=== PATIENT | male | born 1955 | race Caucasian/White ===

== ENCOUNTER → 2018-05-21 | Outpatient (CLI) | payer OTHER ==
[~2018-05-21] MED LIST: IBUP1TAB11 PO; MULT1TAB60 PO
== END | disposition home or self-care (01) ==
LOC: STAR 13:12
PROVIDERS: ATTEND Orthopaedic Surgery
DX: Z01.818 Encounter for other preprocedural examination (principal); S76.311A Strain of muscle, fascia and tendon of the posterior muscle group at thigh level, right thigh, initial encounter; M75.41 Impingement syndrome of right shoulder; M75.121 Complete rotator cuff tear or rupture of right shoulder, not specified as traumatic; X58.XXXA Exposure to other specified factors, initial encounter; Y93.89 Activity, other specified; Y92.89 Other specified places as the place of occurrence of the external cause; Y99.8 Other external cause status
CPT/HCPCS: 93005

== ENCOUNTER 2018-05-29 09:24 | Day surgery (SDC) | payer OTHER ==
[2018-05-21 14:13] VITALS: BP 118/77
[~2018-05-29] VITALS: Ht 175.3 cm; Wt 89.6 kg
[~2018-05-29 09:24] MED LIST changes: +BUPIVACAINE/PF-EPI 0.5% 1:200K ONE; +LIDOCAINE 1%-EPI 1:100K, 30ML ONE; +NEOSPORIN OINT, 15GM ONE
[2018-05-29] MEDS ORDERED: LACTATED RINGERS 1,000 ML IV SCH (09:54)
[2018-05-29] MEDS ORDERED: GABAPENTIN 300 MG CAPSULE PO ONE (10:00)
[2018-05-29] MEDS ORDERED: ONDANSETRON ODT 8 MG PO ONE (10:00)
[2018-05-29] MEDS ORDERED: ACETAMINOPHEN 500 MG TABLET PO ONE (10:00)
[2018-05-29] MEDS ORDERED: FENTANYL PF 100 MCG/2ML ONE ×2 (10:13→12:48)
[2018-05-29] MEDS ORDERED: MIDAZOLAM 1 MG/ML, 2ML ONE (10:13)
[2018-05-29] MEDS ORDERED: ROCURONIUM 10 MG/ML,10ML ONE (10:47)
[2018-05-29] MEDS ORDERED: SUCCINYLCHOLINE 20 MG/ML, 10ML ONE (10:47)
[2018-05-29] MEDS ORDERED: CEFAZOLIN 1,000 MG ONE (11:29)
[2018-05-29] MEDS ORDERED: LIDOCAINE-MPF 2% ,5ML ONE (11:29)
[2018-05-29] MEDS ORDERED: BUPIVACAINE/PF 0.5% ONE (11:29)
[2018-05-29] MEDS ORDERED: PROPOFOL 10 MG/ML, 20ML ONE (11:29)
[2018-05-29] MEDS ORDERED: DEXAMETHASONE 4 MG/ML, 1ML ONE (11:29)
[2018-05-29] MEDS ORDERED: ALBUTEROL/IPRATROPIUM 2.5MG/0.5MG, 3 ML NPPB PRN (11:30)
[2018-05-29] MEDS ORDERED: ONDANSETRON 2MG/ML, 2ML IV PRN (11:30)
[2018-05-29] MEDS ORDERED: hydrALAzine 20 MG/ML, 1ML IV PRN (11:30)
[2018-05-29] MEDS ORDERED: MIDAZOLAM 1 MG/ML, 2ML IV PRN (11:30)
[2018-05-29] MEDS ORDERED: PROMETHAZINE 25 MG/ML, 1ML IV PRN (11:30)
[2018-05-29] MEDS ORDERED: HYDROmorphone 2 MG/ML, 1ML IVPush PRN (11:30)
[2018-05-29] MEDS ORDERED: MEPERIDINE/PF 25MG/0.5ML IVPush PRN (11:30)
[2018-05-29] MEDS ORDERED: OXYcodone 5 MG/5 ML ORAL.SOL UDC ONE (12:49)
[2018-05-29] MEDS: FENTANYL PF 100 MCG/2ML IV PRN ×2 (12:51→13:01)
[2018-05-29] MEDS: OXYcodone 5 MG/5 ML ORAL.SOL UDC PO PRN ×2 (12:55→13:20)
== END 2018-05-29 15:35 | disposition home or self-care (01) ==
LOC: OUT 09:24
PROVIDERS: ATTEND Orthopaedic Surgery
DX: M75.111 Incomplete rotator cuff tear or rupture of right shoulder, not specified as traumatic (principal); M75.41 Impingement syndrome of right shoulder; M66.321 Spontaneous rupture of flexor tendons, right upper arm; M19.011 Primary osteoarthritis, right shoulder; M65.811 Other synovitis and tenosynovitis, right shoulder; M94.211 Chondromalacia, right shoulder; G47.33 Obstructive sleep apnea (adult) (pediatric); Z88.8 Allergy status to other drugs, medicaments and biological substances; Z87.891 Personal history of nicotine dependence; Z72.89 Other problems related to lifestyle
CPT/HCPCS: 29823; 29824; 29826; 64415; J0330; J0690; J1100; J2250; J2704; J3010; J3490; J7120; Q0162